=== PATIENT | male | born 2000 | race Caucasian/White ===

== ENCOUNTER 2018-03-31 08:29 | Emergency (ER) | payer OTHER ==
[~2018-03-31] VITALS: Ht 195.6 cm; Wt 86.2 kg
[2018-03-31 08:39] VITALS: BP 119/62
== END 2018-03-31 10:10 | disposition home or self-care (01) ==
LOC: ER 08:29
DX: K59.00 Constipation, unspecified (principal)
CPT/HCPCS: 74018